=== PATIENT | female | born 1995 | race Caucasian/White ===

== ENCOUNTER 2024-06-22 19:08 | Outpatient (CLI) | payer MEDICAID, SELFPAY ==
[2024-06-22 19:29] VITALS: BP 119/68; PULSE 95; RESP 16; TEMP 37.3; O2SAT 96
[2024-06-22 20:01] VITALS: BMI 29.7
--- NOTE | 2024-06-23 20:12 | OB.TRI.HP_ITS ---
HPI - General General Date of Admission: 06/22/24 Date of Service: 06/22/24 Chief Complaint: s/p fall HPI Narrative DESIREE LINDO, is a 28 F who presents after fall on the ice. Did not hit her abdomen. No bleeding. [place] sosa but no painful contractions. RH positive Monitored for 4 hours. Cat I irregular non painful contractions. Maternal Data Information Final JULIAN: 06/29/24 Gestational age: 34+4 PFSH History 2 Elective abortions Hx Para 1 Spontaneous abortions Hx # Term Pregnancies Ectopic pregnancies Hx # Pregnancies Multiple births # of living children NST FHR Rate Baby A Baseline: 145 Variability:: Moderate Accelerations:: 15 x 15 Decelerations:: None NST Reactive:: Yes FHR Category:: Category I Uterine Activity:: irregular Assessment & Plan (1) 34 weeks gestation of : (2) Fall due to slipping on ice or snow: QUALIFIERS: Encounter type: initial encounter Qualified Code(s): W00.9XXA - Unspecified fall due to ice and snow, initial encounter PLAN: Plan Cat I tracing. No bleeding. Rh positive
== END 2024-06-22 23:45 | disposition home or self-care (01) ==
LOC: WPOUT 19:16 → WP 19:17
PROVIDERS: Referring Provider Obstetrics & Gynecology; Visit Provider Obstetrics & Gynecology
DX: O47.03 False labor before 37 completed weeks of gestation, third trimester (principal); Z3A.34 34 weeks gestation of pregnancy; W00.9XXA Unspecified fall due to ice and snow, initial encounter
CPT/HCPCS: 59025; 59050; 99221; G0378

== ENCOUNTER 2024-07-17 10:37 | Inpatient (IN) | payer MEDICAID, SELFPAY ==
[2024-07-17] VITALS (51 sets, daily range): BP systolic 97–139; BP diastolic 58–85; PULSE 77–118; RESP 16–18; TEMP 36.2–37.4; O2SAT 92–100; BMI 29.9
[2024-07-17] MEDS: Lactated Ringers 1,000 ML 50 ML IV (10:52)
[2024-07-17 11:07] LABS: Absolute Lymphocyte Count 1.34 X10^3/uL (0.83-4.51); Absolute Neutrophil Count 7.5 X10^3/uL (2.0-7.7); Basophil# 0.02 X10^3/uL; Basophil% 0.2 % (0-1); Eosinophil# 0.01 X10^3/uL; Eosinophils% 0.1 % (0-5); Hemoglobin 11.1 g/dL (12.0-15.0); Lymphocyte # 1.34 X10^3/ul (0.83-4.51); Lymphocyte % 14.4 % (19-41); Mean Corp Hgb Conc 32.6 g/dL (32-36); Mean Corpuscular Hgb 25.5 pg (27.0-32.0); Mean Platelet Vol. 10.8 fl (6.2-12.0); Monocyte# 0.41 X10^3/uL; Monocyte% 4.4 % (0-10); NRBC Flagged by Analyzer 0 % (0-5); Neutrophil # 7.47 X10^3/uL (2.7-7.7); Neutrophil % 80.3 % (47-70); Platelet Count 145 K/mm3 (150-450); RBC Distribution Width CV 17.8 % (11.6-14.6); RBC Distribution Width SD 50.4 fl (35.1-43.9); Red Blood Count 4.36 M/mm3 (4.2-5.4); White Blood Count 9.3 K/mm3 (4.4-11.0)
--- NOTE | 2024-07-17 11:07 | NURSING ---
Admitting patient and requesting epidural
[2024-07-17] MEDS: fentaNYL-bupivacaine (epidural) 100 ML BAG EPIDURAL (11:51)
[2024-07-17 12:08] LABS: Syphilis Antibodies Non-reactive
[2024-07-17] MEDS: Lactated Ringers 1,000 ML 200 ML IV (12:15)
--- NOTE | 2024-07-17 12:50 | PCM.HP.OB ---
HPI - General General Date of Admission: 07/17/24 HPI Narrative DESIREE LINDO, is a 28 F who presents C/O CTX FOUND TO BE 6-7 CM, MEMBRANES INTACT WITH REGULAR CTX EVERY Maternal Data Information Final JULIAN: 07/30/24 Final JULIAN Source: US <20 weeks Gestational age: 38.1 PFSH PFSH Home Medications ?Medication ?Instructions ?Recorded ?Last Taken ?Type ferrous sulfate 324 mg (65 mg 324 mg PO QODAY 07/17/24 07/16/24 08:00 History iron) tablet,delayed release 324 mg vits,calcium no.78-iron tab 07/17/24 07/16/24 08:00 History fumarate-folic acid 29 mg-1 mg 1 TAB tablet (Prenatabs FA) Allergy/AdvReac Type Severity Reaction Status Date / Time No Known Allergies Allergy Verified 07/17/24 10:25 Surgical History (Updated 07/17/24 @ 11:06 by Clive Day) History of surgery Social History Smoking Status: Never smoker History 2 Elective abortions Hx Para 1 Spontaneous abortions Hx # Term Pregnancies Ectopic pregnancies Hx # Pregnancies Multiple births # of living children NST FHR Rate Baby A Baseline: 120 Variability:: Moderate Accelerations:: 15 x 15 Decelerations:: None NST Reactive:: Yes FHR Category:: Category I Uterine Activity:: Q2-4 MIN Vital Signs Vital Signs Vital Signs: 07/17/24 10:20 07/17/24 10:20 07/17/24 11:24 Temperature Temperature Source Pulse Rate 102 H Respiratory Rate Blood Pressure 134/75 H 127/85 H BP Systolic 134 127 BP Diastolic 75 85 Pulse Ox 07/17/24 11:24 07/17/24 11:24 07/17/24 11:24 Temperature Temperature Source Pulse Rate 106 H 108 H Respiratory Rate Blood Pressure BP Systolic BP Diastolic Pulse Ox 99 07/17/24 11:29 07/17/24 11:29 07/17/24 11:29 Temperature Temperature Source Pulse Rate 98 Respiratory Rate Blood Pressure 139/78 H BP Systolic 139 BP Diastolic 78 Pulse Ox 99 07/17/24 11:34 07/17/24 11:34 07/17/24 11:35 Temperature Temperature Source Pulse Rate 94 Respiratory Rate Blood Pressure 125/70 H BP Systolic 125 BP Diastolic 70 Pulse Ox 97 07/17/24 11:35 07/17/24 11:35 07/17/24 11:37 Temperature Temperature Source Pulse Rate 93 92 Respiratory Rate 18 Blood Pressure BP Systolic BP Diastolic Pulse Ox 07/17/24 11:37 07/17/24 11:38 07/17/24 11:38 Temperature Temperature Source Pulse Rate 91 Respiratory Rate Blood Pressure 114/62 BP Systolic 114 BP Diastolic 62 Pulse Ox 92 07/17/24 11:39 07/17/24 11:39 07/17/24 11:40 Temperature Temperature Source Pulse Rate 94 Respiratory Rate 18 Blood Pressure BP Systolic BP Diastolic Pulse Ox 98 07/17/24 11:43 07/17/24 11:43 07/17/24 11:44 Temperature Temperature Source Pulse Rate 102 H 102 H Respiratory Rate Blood Pressure 111/64 BP Systolic 111 BP Diastolic 64 Pulse Ox 07/17/24 11:44 07/17/24 11:45 07/17/24 11:49 Temperature Temperature Source Pulse Rate Respiratory Rate 18 Blood Pressure 115/64 BP Systolic 115 BP Diastolic 64 Pulse Ox 97 07/17/24 11:49 07/17/24 11:49 07/17/24 11:50 Temperature Temperature Source Pulse Rate 93 Respiratory Rate 16 Blood Pressure BP Systolic BP Diastolic Pulse Ox 98 07/17/24 11:50 07/17/24 11:54 07/17/24 11:54 Temperature Temperature Source Pulse Rate 88 Respiratory Rate 16 Blood Pressure BP Systolic BP Diastolic Pulse Ox 98 07/17/24 11:55 07/17/24 11:55 07/17/24 11:55 Temperature Temperature Source Temporal Pulse Rate 91 Respiratory Rate Blood Pressure 127/67 H BP Systolic 127 BP Diastolic 67 Pulse Ox 07/17/24 11:55 07/17/24 11:55 07/17/24 11:58 Temperature 98.6 F Temperature Source Pulse Rate Respiratory Rate 16 Blood Pressure 125/65 H BP Systolic 125 BP Diastolic 65 Pulse Ox 07/17/24 11:58 07/17/24 11:59 07/17/24 11:59 Temperature Temperature Source Pulse Rate 88 89 Respiratory Rate Blood Pressure BP Systolic BP Diastolic Pulse Ox 99 07/17/24 12:00 07/17/24 12:04 07/17/24 12:04 Temperature Temperature Source Pulse Rate 89 Respiratory Rate 16 Blood Pressure 128/69 H BP Systolic 128 BP Diastolic 69 Pulse Ox 07/17/24 12:04 07/17/24 12:04 07/17/24 12:04 Temperature Temperature Source Pulse Rate 96 Respiratory Rate 16 Blood Pressure BP Systolic BP Diastolic Pulse Ox 99 07/17/24 12:36 07/17/24 12:38 07/17/24 12:38 Temperature Temperature Source Pulse Rate 88 Respiratory Rate 16 Blood Pressure 131/66 H BP Systolic 131 BP Diastolic 66 Pulse Ox Weight Weight: 84 kg Body Mass Index (BMI) 29.9 Physical Exam Narrative ve: 7/80/-2 AROM performed clear fluid Const alert and oriented x3 General Appearance: cooperative HEENT normocephalic GI GI Narrative: Gravid, non tender to palpation. OB / External & Speculum: external exam normal Extremity normal to inspection Skin no rashes or lesions noted Neuro oriented x3 and CN's II-XII intact bilaterally Psych Appearance: grossly normal Labs Labs Labs: Blood Type A POSITIVE Antibody Screen NEGATIVE Hct 34.0 % (37-47) L Hgb 11.1 g/dL (12.0-15.0) L Syphilis Total Ab Non-reactive Assessment & Plan (1) 38 weeks gestation of : (2) Active labor at term: PLAN: Plan Admit to L&D [place] FHR/TOCO Epidural if requested for pain Monitor VS Anticipate AROM performed, pitocin if indicated
[2024-07-17] MEDS: Oxytocin 10 UNITS/ML Vial IM (14:00)
[2024-07-17] MEDS: Oxytocin 15 Units/NS 250ml 15 UNITS/250 ML IV.SOLN 334 UNITS IV (14:01)
--- NOTE | 2024-07-17 14:17 | OB.VAGDELI_ITS ---
Vaginal Delivery Maternal Presentation Maternal Presentation: Active Labor Maternal Presentation: 38weeks gestation Vaginal Delivery Information Procedure Performed: Spontaneous Vaginal Delivery Surgeon/Practitioner: Gilma Bermudez Date of Procedure: 07/17/24 Pre-Procedure Diagnosis: 38 weeks gestation, active labor Post-Procedure Diagnosis: same, live male Type of anesthesia: Epidural Estimated Blood Loss: 400 Time of Delivery: 13:58 Findings Description of procedure: Patient progressed to fully dilated. Good maternal pushing efforts delivered the head followed by gentle downward traction the anterior shoulder delivered without complication and with ease. The posterior shoulder delivered followed by the rest of the infants body. The was then placed on the mother's chest for immediate skin to skin. Delayed cord clamping was performed. The was vigorous at time of delivery. IM Pitocin was given. Placenta was then delivered intact without complication. Second-degree perineal laceration was appreciated. This was repaired using 2-0 Vicryl and a 3-0 Rapide. Excellent hemostasis was appreciated. Presentation: Vertex Amniotic Membrane Rupture Type: Artificial Amniotic Fluid Description: Clear Placental Delivery Description: Expressed Placenta Disposition: [facility] Specimen collected: No Cord Vessel Description: 3 Vessels Cord Entanglement: None Nuchal Cord Compression: Without compression A Gender: Male (1 minute): 9 (5 minute): 9 Cylinder Inspector regulatory assistant: No Post Vaginal Deli Medications given after delivery: IV Pitocin and IM Pitocin Episiotomy Description: None Laceration: Perineal Extension/lac and 2nd degree Complication Complications: No
[2024-07-17] MEDS: 0.9% Saline Lock 10 ML Syringe IV (15:44)
[2024-07-17] MEDS: Acetaminophen 500 MG Tablet 1000 MG PO ×2 (17:07→21:34)
[2024-07-18 00:04] VITALS: BP 110/67; PULSE 80; RESP 16; TEMP 36.5; O2SAT 97
[2024-07-18] MEDS: Ibuprofen 600 MG Tablet PO ×2 (00:57→17:18)
[2024-07-18 03:39] VITALS: BP 112/58; PULSE 69; RESP 18; TEMP 36.4; O2SAT 97
[2024-07-18 09:10] VITALS: BP 113/62; PULSE 91; RESP 16; TEMP 36.3; O2SAT 98
--- NOTE | 2024-07-18 10:06 | PCM.PN.OB ---
Subjective Subjective pt doing well. no pain. lochia normal. ambulating and voiding without difficulty. denies lightheadedness, dizziness, cp, sob, leg pain. offers no complaints. she is unsure if she wants discharge today or tomorrow. Objective Data Objective Data Vital Signs: Vital Signs Temp Pulse Resp BP Pulse Ox O2 Del Method 97.3 F L 91 16 113/62 98 Room Air 07/18/24 09:10 07/18/24 09:10 07/18/24 09:10 07/18/24 09:10 07/18/24 09:10 07/18/24 09:10 Oxygen Delivery Method Room Air Weight: 185 lb 3.013 oz Body Mass Index (BMI) 29.9 Intake & Output: Intake and Output for Last 24 Hours 07/16/24 07/17/24 07/18/24 23:59 23:59 23:59 Intake Total 1640.00 / 1640.00 Output Total 900 / 900 500 / 500 Balance 740.00 / 740.00 -500 / -500 Lab / Micro Data 07/17/24 10:52 Labs: Laboratory Results - last 24 hr 07/17/24 10:52: WBC 9.3, RBC 4.36, Hgb 11.1 L, Hct 34.0 L, MCV 78.0 L, MCH 25.5 L, MCHC 32.6, RDW Std Deviation 50.4 H, RDW Coeff of Bee 17.8 H, Plt Count 145 L, MPV 10.8, Immature Gran % (Auto) 0.600, Neut % (Auto) 80.3 H, Lymph % (Auto) 14.4 L, Mcpherson % (Auto) 4.4, Eos % (Auto) 0.1, Baso % (Auto) 0.2, Absolute Neuts (auto) 7.5, Absolute Lymphs (auto) 1.34, Nucleated RBC % 0, Syphilis Total Ab Non-reactive, Blood Type A POSITIVE, Antibody Screen NEGATIVE Physical Exam Const alert and no apparent distress General Appearance: comfortable HEENT normocephalic Resp normal respiratory effort GI soft to palpation, non-tender and non-distended GI Narrative: FF@U-2 Extremity normal to inspection and no calf tenderness Assessment & Plan (1) Vaginal delivery: PLAN: PPD#1 s/p . Doing well. Routine care.
[2024-07-18] MEDS: Acetaminophen 500 MG Tablet 1000 MG PO (11:24)
--- NOTE | 2024-07-18 12:27 | DCINST_ITS ---
Discharge Instructions Diet Discharge Diet: No restrictions DC O2, CPAP, BIPAP needs Home O2 Discharge instructions: No Dressing / Incision Discharge Activity: May Drive and May Shower May resume sexual activity in: 6 weeks (nothing in the vagina and no soaking in water) Ice area for (Minutes): 15 Weight Bearing Status: Weight bearing as tolerated Lifting Restrictions: nothing heavier than baby Dressing / Incision Call your doctor if you observe: Fever of 101 or Higher, Coldness, Increased Pain, Numbness or Tingling, Inability to urinate, Inability to have a bowel movement, Using more than 1 pad per hour, Shortness of breath, Dizziness, Swelling in the ankles, Chest pain, Increased palpitations (irregular heartbeat), Calf discomfort and Uncontrolled pain Cleanse incision/area with: Soap & Water Follow Up Care Please Follow Up With: Gilma Bermudez MD When: 1-2 weeks for early 6 week exam Test Results: Test results from this visit will be discussed in further detail at your follow- up appointment, if applicable. Discharge Plan Admission Admit Date/Time: 07/17/24 10:37 Primary Reason for Your Visit: delivery Attending Provider: Gilma Bermudez Primary Care Provider: Care Physician,No Primary Instructions Patient Instructions: After a Vaginal Discharge Orders/Prescriptions Prescriptions: Continued ferrous sulfate 324 mg (65 mg iron) tablet,delayed release (DR/EC) 324 mg PO QODAY Prenatabs FA 29-1 mg tablet Referrals / Follow Up: Care Physician,No Primary [Primary Care Provider] - Disposition Disposition (needs filled in before D/C Order can be placed): Home, Self Care
[2024-07-18 13:01] VITALS: BP 116/72; RESP 14; TEMP 36.7; O2SAT 98
[2024-07-18 13:05] VITALS: O2SAT 98
--- NOTE | 2024-07-18 13:13 | NURSING ---
All documentation by nursing students Anastacia Oneill and Sarah Beth Silva reviewed by nursing informatics clinical analyst Freda HERNANDEZN, RN.
[2024-07-18] MEDS: Fluticasone 0.05% 1 SPRAY NASAL.SRY NASAL (13:58)
[2024-07-18 16:34] VITALS: BP 111/64; PULSE 85; RESP 16; TEMP 36.6; O2SAT 98
== END 2024-07-18 18:35 | disposition home or self-care (01) | DRG 560 ==
LOC: LAB 10:41 → WP 10:42
PROVIDERS: Admitting Provider Obstetrics & Gynecology; Referring Provider Obstetrics & Gynecology; Visit Provider Obstetrics & Gynecology
DX: O70.1 Second degree perineal laceration during delivery (principal); Z37.0 Single live birth; Z3A.38 38 weeks gestation of pregnancy
CPT/HCPCS: 59025; 59050; 85025; 86780; 86850; 86900; 86901; A4216